=== PATIENT | male | born 1995 | race Two or more races ===

== ENCOUNTER 2021-01-06 15:47 | Emergency (ER) | payer BC, MEDICAID ==
[2021-01-06 16:01] VITALS: BP 128/78
--- NOTE | 2021-01-06 16:29 | ED Physician Documentation ---
History of Present Illness - Stated complaint Stated Complaint: MALE - Chief complaint Chief Complaint: General - Additonal information Additional information: 25-year-old male presents the emergency department for evaluation of 3 days rec uzma pain that he believes are his hemorrhoids. He reports that he had a flare of hemorrhoids about a year ago that self resolved. He denies that he strains to have bowel movements. He denies bloody bowel movements. He is unable to sit comfortably. He has not attempted any treatment. Review of Systems Constitutional: reports: Reviewed and negative Ears: reports: Reviewed and negative Throat: reports: Reviewed and negative Cardiac: reports: Reviewed and negative Respiratory: reports: Reviewed and negative GI: reports: Other (Rectal pain/hemorrhoids) : reports: Reviewed and negative Skin: reports: Reviewed and negative Musculoskeletal: reports: Reviewed and negative PD PAST MEDICAL HISTORY - Past Medical History Cardiovascular: None Respiratory: None Endocrine/Autoimmune: None GI: None : None HEENT: None Psych: None Musculoskeletal: None Derm: None - Past Surgical History Past Surgical History: Yes General: Appendectomy - Present Medications Home Medications: Ambulatory Orders Medication Instructions Recorded Confirmed Hydrocortisone [Anusol-Hc] 30 gm RC BID #30 gm 01/06/21 - Allergies Allergies/Adverse Reactions: Allergies Allergy/AdvReac Type Severity Reaction Status Date / Time latex Allergy Rash Verified 01/06/21 16:02 - Social History Does the pt smoke?: No Smoking Status: Never smoker Does the pt drink ETOH?: No Does the pt have substance abuse?: No - Immunizations Immunizations are current?: No Immunizations: No immun - POLST Patient has POLST: No PD ED PE EXPANDED - General General: Alert, No acute distress - Abdomen Abdomen: Normal Bowel sounds. No: Tender to palpation - Rectal Rectal: Hemorrhoid (Large amount of external nonthrombosed hemorrhoids that are tender to touch. No surrounding inflammation or erythema.) Results - Vitals Vitals: Vital Signs - 24 hr 01/06/21 15:57 Temperature 36.7 C Heart Rate 76 Respiratory 15 Rate Blood Pressure 128/78 O2 Saturation 99 Oxygen O2 Source Room air PD MEDICAL DECISION MAKING - ED course Complexity details: re-evaluated patient, d/w patient ED course: 25-year-old male presents the emergency department for evaluation of 3 days of rectal pain. He does have a large number of external nonthrombosed hemorrhoids. Unable to do an elliptical incision and drainage today. I have advised warm sitz baths as well as Anusol HC suppositories. I advised that if they become thrombosed over the next 3 to 4 days he may return to the ER for possible evaluation of thrombectomy. However given the large number and volume of his hemorrhoids he will in the long-term require colorectal surgery. I have advised him to establish with a primary care doctor in order to obtain this referral. Emergent return precautions were discussed. Departure - Departure Disposition: Home, Self Care Clinical Impression: External hemorrhoid Condition: Stable Record reviewed to determine appropriate education?: Yes Instructions: ANUSOL-HC Suppositories Prescriptions: Hydrocortisone [Anusol-Hc] 30 gm RC BID #30 gm Comments: Marc, I am so sorry that you are dealing with these hemorrhoids. Unfortunately they are not yet thrombosed so we cannot drain them. I would like you to apply the Anusol cream once or twice daily or after every bowel movement. This has a steroid in it that will help with the discomfort. Sitting in a warm sitz bath for 10 minutes twice a day can also help shrink the hemorrhoids. It is very important that you are not straining when you defecate or have bowel movements. If you find that you are constipated or having to strain to push the stool out I recommend that you increase your fiber intake with Metamucil or take MiraLAX [id number]. Given how large and how many hemorrhoids you have you will need to see a primary doctor to obtain referral to a rectal surgeon. Return to the emergency department if you have fevers, worsening symptoms, or cannot defecate
== END 2021-01-06 16:40 | disposition home or self-care (01) ==
LOC: ED 15:47
DX: K64.4 Residual hemorrhoidal skin tags (principal)
CPT/HCPCS: 99282; 99283

== ENCOUNTER 2021-12-14 20:23 | Emergency (ER) | payer BC ==
[2021-12-14] MEDS ORDERED: IBUPROFEN 800 MG TABLET PO STA (21:01)
--- NOTE | 2021-12-14 21:09 | ED Physician Documentation ---
History of Present Illness - Stated complaint Stated Complaint: COUGH/HEADACHE/FEVER/VOMIT - Chief complaint Chief Complaint: Fever - History obtained from History obtained from: Patient - Additonal information Additional information: Patient is a 26-year-old male with no significant past medical history presenting for evaluation of fever, sore throat and headache since yesterday. He lives with his father who has tested positive for COVID. Patient took a home COVID test that was negative yesterday. He is unsure of how that high the fever has been but has felt hot. He has been using Tylenol and last used around 3 PM. He denies significant improvement to feelings of fever or headache with the Tylenol.He reports a headache since yesterday which is all over his head and throbbing. Nothing makes it better or worse.He also reports having sore throat. He has been able to tolerate p.o. intake today. No vomiting or diarrhea.No significant cough and patient denies chest pain or difficulty breathing. No recent travel. Review of Systems Constitutional: reports: Fever Ears: denies: Ear pain Nose: denies: Congestion Throat: reports: Sore throat Cardiac: denies: Chest pain / pressure, Palpitations Respiratory: denies: Dyspnea, Cough GI: denies: Abdominal Pain, Vomiting, Diarrhea : denies: Dysuria Skin: denies: Rash Musculoskeletal: denies: Back pain Neurologic: reports: Headache PD PAST MEDICAL HISTORY - Past Medical History Cardiovascular: None Respiratory: None Endocrine/Autoimmune: None GI: None : None HEENT: None Psych: None Musculoskeletal: None Derm: None - Past Surgical History Past Surgical History: Yes General: Appendectomy - Present Medications Home Medications: Ambulatory Orders Medication Instructions Recorded Confirmed Hydrocortisone [Anusol-Hc] 30 gm RC BID #30 gm 01/06/21 - Allergies Allergies/Adverse Reactions: Allergies Allergy/AdvReac Type Severity Reaction Status Date / Time latex Allergy Rash Verified 12/14/21 20:35 - Social History Does the pt smoke?: No Smoking Status: Never smoker Does the pt drink ETOH?: No Does the pt have substance abuse?: No - Immunizations Immunizations are current?: No Immunizations: No immun - POLST Patient has POLST: No PD ED PE NORMAL - General General: Alert and oriented X 3, No acute distress, Well developed/nourished - HEENT HEENT: Atraumatic, Moist mucous membranes, Pharynx benign (No oral swelling or exudate), Other (No sinus tenderness) - Neck Neck: Supple, no meningeal sign - Cardiac Cardiac: RRR, No murmur, Strong equal pulses - Respiratory Respiratory: No respiratory distress, Clear bilaterally - Abdomen Abdomen: Normal bowel sounds, Soft, Non tender - Derm Derm: Normal color, No rash - Extremities Extremities: No edema - Neuro Neuro: Alert and oriented X 3, whizzer 2-12 intact, No motor deficit, Normal speech - Psych Psych: Normal mood, Normal affect Results - Vitals Vitals: Vital Signs - 24 hr 12/14/21 12/14/21 12/14/21 20:30 21:20 22:00 Temperature 37.4 C 36.9 C Heart Rate 104 H 86 Respiratory 14 15 16 Rate Blood Pressure 133/92 H 126/72 O2 Saturation 96 100 Oxygen O2 Source Room air - Labs Labs: Laboratory Tests 12/14/21 21:11 Group A Strep Rapid Negative PD MEDICAL DECISION MAKING - ED course Complexity details: reviewed results, re-evaluated patient, d/w patient ED course: Patient is a 26-year-old male presenting for evaluation of fever, headache and sore throat. He has a low-grade fever but otherwise reassuring vitals. His exam is also benign with no concerning findings for subarachnoid hemorrhage, meningitis or intracranial process. Do not think he needs an emergent head CT. His symptoms appear to be viral in nature. A strep test was performed and is negative. No signs of airway compromise. He was given medications for fever and headache with improvement. He is tolerating p.o. He was given a dose of Decadron for his sore throat. A COVID swab is pending.Patient was counseled on continuing with supportive care as well as strict return precautions. Departure - Departure Disposition: 01 Home, Self Care Clinical Impression: Acute viral pharyngitis Upper respiratory infection Qualifiers: URI type: unspecified URI Qualified Code(s): J06.9 - Acute upper respiratory infection, unspecified Instructions: ED Pharyngitis Viral Comments: Marc - You were evaluated for a fever, Headache and sore throat. Your symptoms are likely due to a viral illness. You had a strep test which was negative. A culture is still pending. You were given a steroid medication which should help with inflammation in your throat. Please use Motrin and Tylenol for pains and fevers. You also had a COVID swab Which is pending We will notify you if there are abnormal results. Please return to the emergency department if you have any concerns such as worsening headache, difficulty swallowing, trouble breathing or again with any concerns. You have a Covid test pending. You need to self quarantine until the result is done and negative. Do not leave your house. Do not get near anybody. The results should be done in 48 to 72 hours. We will call with a positive result, the fastest way to get a negative result for confirmation though is to go to the hospital website at [email or web address], click on the my [employer] tab and sign up for the patient portal. If any friends or family get sick and would like to have a Covid test done, but do not have signs or symptoms that would necessitate being hospitalized, there are multiple local options for Covid testing. [facility] keeps an updated list of testing and vaccination options at: [email or web address]. Forms: Activity restrictions Discharge Date/Time: 12/14/21 22:00
[2021-12-14 21:28] LABS: RAPID STREP SCREEN Negative (Negative)
[2021-12-14] MEDS ORDERED: DEXAMETHASONE 10 MG/ML VIAL PO STA (21:39)
[2021-12-14] MEDS ORDERED: CHERRY SYRUP 10 ML UDC PO ONE (21:39)
[2021-12-14 23:59] VITALS: BP 126/72
== END 2021-12-14 22:00 | disposition home or self-care (01) ==
LOC: ED 20:23
DX: U07.1 COVID-19 (principal); J06.9 Acute upper respiratory infection, unspecified
CPT/HCPCS: 87070; 87430; 87635; 99282; 99283; A9270

== ENCOUNTER 2024-01-22 13:31 | Emergency (ER) | payer BC ==
--- NOTE | 2024-01-22 13:53 | ED Physician Documentation ---
PD HPI HEENT - Stated complaint Stated Complaint: HIGH BP, DIZZY - Chief complaint Chief Complaint: Heent - History obtained from History obtained from: Patient - History of Present Illness Timing - onset: Today (he noted onset of vertigo severely when turne over in bed prior to getting up. Increased significantly when did try to sit up. Improves to minimal/gone when lies still, face up.) Timing - details: Abrupt onset, Still present, Intermittant Location: Other (Coherently conversant. denies ear pain. Has some fullness/pressure [place] frontal area. No focal weakness, trouble speaking, vision change.) Worsens: Position. No: Swalllowing Associated symptoms: Headache (mild frontal). No: Fever, Congestion, Swollen nodes, Cough Similar symptoms before: Has not had sx before Review of Systems Constitutional: denies: Fever, Chills, Myalgias Eyes: denies: Loss of vision, Photophobia, Discharge Ears: denies: Ear pain, Tinnitus/ringing Nose: reports: Congestion, Sinus pressure / pain. denies: Rhinorrhea / runny nose Throat: denies: Sore throat Cardiac: denies: Chest pain / pressure Respiratory: denies: Cough Neurologic: denies: Generalized weakness, Focal weakness, Numbness PD PAST MEDICAL HISTORY - Past Medical History Past Medical History: No Cardiovascular: None Respiratory: None Neuro: None Endocrine/Autoimmune: None GI: None : None HEENT: None Psych: None Musculoskeletal: None Derm: None - Past Surgical History Past Surgical History: Yes General: Appendectomy - Present Medications Home Medications: Ambulatory Orders Medication Instructions Recorded Confirmed Amoxicillin 500 mg PO TID #20 cap 01/22/24 LORazepam [Ativan] 1 mg PO BID PRN #12 tablet 01/22/24 Meclizine HCl 25 mg PO Q8H PRN #30 tab 01/22/24 dexAMETHasone [Decadron] 4 mg PO DAILY #5 tablet 01/22/24 - Allergies Allergies/Adverse Reactions: Allergies Allergy/AdvReac Type Severity Reaction Status Date / Time latex Allergy Rash Verified 01/22/24 13:40 - Social History Does the pt smoke?: No Smoking Status: Never smoker Does the pt drink ETOH?: No Does the pt have substance abuse?: No - Immunizations Immunizations are current?: No Immunizations: No immun - POLST Patient has POLST: No PD ED PE NORMAL - Vitals Vital signs reviewed: Yes - General General: Alert and oriented X 3, No acute distress (lying supine with head just on a pillow, no focal deficits nor nystagmus.), Well developed/nourished - HEENT HEENT: PERRL, EOMI (some nystagmus to right when he turns head to the just slowly.), Pharynx benign. No: Ears normal (left is normal. Right shows normal external canal. The TM has fluid bulging it. ) - Neck Neck: Supple, no meningeal sign, No adenopathy - Cardiac Cardiac: RRR - Abdomen Abdomen: Normal bowel sounds, Soft - Male Male : Deferred, Pt declined, School Leader present - Derm Derm: Normal color, Warm and dry - Neuro Neuro: Alert and oriented X 3, robotics mechanic 2-12 intact, No motor deficit, No sensory deficit, Normal speech, Other Eye Opening: Spontaneous Motor: Obeys Commands Verbal: Oriented GCS Score: 15 Results - Vitals Vitals: Vital Signs - 24 hr 01/22/24 01/22/24 01/22/24 13:33 13:55 15:18 Temperature 36.3 C L Heart Rate 63 66 73 Respiratory 16 28 H 18 Rate Blood Pressure 150/94 H 152/97 H 137/95 H O2 Saturation 100 96 96 Oxygen O2 Source Room air Departure - Departure Disposition: 01 Home, Self Care Clinical Impression: Positional vertigo of right ear Otitis media Qualifiers: Otitis media type: suppurative Chronicity: acute Laterality: right Recurrence: non-recurrent Spontaneous tympanic membrane rupture: without spontaneous rupture Qualified Code(s): H66.001 - Acute suppurative otitis media without spontaneous rupture of ear drum, right ear Condition: Stable Record reviewed to determine appropriate education?: Yes Instructions: ED Otitis Media Acute Adult, ED Vertigo Unspecified Follow-Up: [facility] [place] [Provider Group] Prescriptions: Amoxicillin 500 mg PO TID #20 cap LORazepam [Ativan] 1 mg PO BID PRN #12 tablet PRN Reason: Vertigo dexAMETHasone [Decadron] 4 mg PO DAILY #5 tablet Meclizine HCl 25 mg PO Q8H PRN #30 tab PRN Reason: Vertigo Comments: Your dizziness/vertigo sounds like it is coming from the inner ear and your right eardrum does look red suggesting infection. Resume the inflammation extends to the inner ear and is causing the excessive stimulation of your balance center. I would treat this with a combination of meclizine for the vertigo and take it to 3 times daily for the next few days to help. For worse vertigo unrelieved by that adequately, you can add lorazepam every 8-12 hours if needed. This will help with symptoms of less vertigo. Move slow and easy. I would anticipate improving over the next day or 2 and resolved by a few days. In order to get at the problem of it in addition to the symptoms, I would suggest amoxicillin and dexamethasone to help with the ear infection and inflammation through the middle and inner ears. I sent your prescriptions to [facility] pharmacy. Recheck if not improving well over the next few days or return if worse or other symptoms concurrent with that. Forms: PCP List Discharge Date/Time: 01/22/24 15:18
[2024-01-22 14:01] VITALS: O2SAT 96
[2024-01-22] MEDS: diazePAM 5 MG TABLET PO STA (14:34)
[2024-01-22] MEDS: dexAMETHasone 4 MG TABLET PO STA (14:34)
[2024-01-22] MEDS: AMOXICILLIN 250 MG CAPSULE PO STA (14:34)
[2024-01-22] MEDS: MECLIZINE 12.5 MG TABLET PO STA (14:34)
[2024-01-22 15:21] VITALS: BP 137/95
== END 2024-01-22 15:18 | disposition home or self-care (01) ==
LOC: ED 13:31
DX: R42 Dizziness and giddiness (principal); H66.001 Acute suppurative otitis media without spontaneous rupture of ear drum, right ear
CPT/HCPCS: 99283; A9270; J8540